=== PATIENT | male | born 1995 | race Caucasian/White ===

== ENCOUNTER → 2021-09-04 | Outpatient (CLI) | payer OTHER ==
[2021-09-04 16:10] LABS: BASOPHILS ABSOLUTE AUTO 0.03 K/mm3 (0.00-0.23); BASOPHILS PERCENT AUTO 0 % (0-2); EOSINOPHILS ABSOLUTE AUTO 0.13 K/mm3 (0.00-0.68); EOSINOPHILS PERCENT AUTO 2 % (0-6); Hematocrit 45.1 % (37.0-53.0); Hemoglobin 15.6 g/dL (13.5-17.5); IMMATURE GRAN ABSOLUTE AUTO 0.04 K/mm3 (0.00-0.10); IMMATURE GRAN PERCENT AUTO 1 % (0-1); LYMPHOCYTES ABSOLUTE AUTO 1.32 K/mm3 (0.84-5.20); LYMPHOCYTES PERCENT AUTO 16 % (21-46); MONOCYTES ABSOLUTE AUTO 0.68 K/mm3 (0.16-1.47); MONOCYTES PERCENT AUTO 8 % (4-13); Mean Corpuscular HGB 30.2 pg (26.0-34.0); Mean Corpuscular HGB Conc 34.6 g/dL (31.5-36.5); Mean Corpuscular Volume 87 fL (80-100); Mean Platelet Volume 9.4 fL (9.1-12.4); NEUTROPHILS ABSOLUTE AUTO 6.03 K/mm3 (1.96-9.15); NEUTROPHILS PERCENT AUTO 73 % (41-73); Platelet Count 225 K/mm3 (150-400); RDW Standard Deviation 38.4 fL (35.1-46.3); Red Blood Cell Count 5.17 M/mm3 (4.30-5.90); White Blood Cell Count 8.23 K/mm3 (4.00-11.30)
== END | disposition home or self-care (01) ==
LOC: LAB SHORT 16:03 → LAB 16:03
PROVIDERS: Family Medicine
DX: R07.9 Chest pain, unspecified (principal)
CPT/HCPCS: 84484; 85025; 85379

== ENCOUNTER 2022-12-10 08:31 | Day surgery (SDC) | payer OTHER ==
[~2022-12-10] VITALS: Ht 195.6 cm; Wt 80.5 kg
[2022-12-10] MEDS ORDERED: TURMERIC1 GM MC (08:57)
[2022-12-10] MEDS ORDERED: TURMERIC500 M2 PO (09:00)
[2022-12-10] MEDS ORDERED: BROMELAINS500 MG PO (09:01)
--- NOTE | 2022-12-10 11:52 | NUR ---
12/10/22 1152 Lydia Nickerson LIDOCAINE 2% WITH EPI 1:100,000 MIXED 1:1 WITH NORMAL SALINE TO MAKE LIDOCAINE 1% WITH EPI 1:200,000 FOR INJECTION AT OPSITE BY DR ARMIJO. 6.5ML INJECTED AT THE START OF PROCEDURE. 30ML OF EPI (1MG/ML) USED TO SOAK PLEDGETS FOR NASAL PACKING BY DR ARMIJO.
--- NOTE | 2022-12-10 13:50 | NUR ---
12/10/22 4050 ERIN SANTIAGO PAIN CURRENTLY 04/27. WILL GIVE PO PAIN MED PT STILL NEEDS TO PU RX FROM DR. ALEKSANDER MCCORMICK
[2022-12-10 13:55] VITALS: BP 151/86
== END 2022-12-10 14:22 | disposition home or self-care (01) ==
LOC: ORSCSDS 08:31
PROVIDERS: Otolaryngology
PROC: 09BM0ZZ Excision of Nasal Septum, Open Approach (ICD-10-PCS; principal; 2022-12-10 09:45)
PROC: 09BL4ZZ Excision of Nasal Turbinate, Percutaneous Endoscopic Approach (ICD-10-PCS; principal; 2022-12-10 09:45)
PROC: 09SL0ZZ Reposition Nasal Turbinate, Open Approach (ICD-10-PCS; principal; 2022-12-10 09:45)
DX: J34.2 Deviated nasal septum (principal); J34.3 Hypertrophy of nasal turbinates; J34.89 Other specified disorders of nose and nasal sinuses; J45.909 Unspecified asthma, uncomplicated; Z79.899 Other long term (current) drug therapy
CPT/HCPCS: A9270; J0171; J2250; J2405; J2704; J3010